=== PATIENT | female | born 1960 | race Caucasian/White ===

== ENCOUNTER 2020-12-19 06:16 | Day surgery (SDC) | payer OTHER, SELFPAY ==
--- NOTE | 2020-12-18 12:21 | P.CONAN_ITS ---
Documented by User: Kiley Bang NP 12/18/20 12:21 HPI - Anesthesia Eval Consult details Narrative: 60yo F for Colonoscopy PMFSH Past Medical History Medical History Anxiety Depression GERD (gastroesophageal reflux disease) Hiatal hernia Hx of migraines IBS (irritable bowel syndrome) FELICIA on CPAP Surgical History Surgical History History of esophagogastroduodenoscopy (EGD) Hx of appendectomy Hx of colonoscopy Social History Social History Patient Tobacco Use Status: Never used Tobacco Use of substances other than those prescribed or required for medical reasons: No Are you DNR?: No Advance Directives: No Advance Directives Information Provided: Yes Meds Allergies Allergy/AdvReac Type Severity Reaction Status Date / Time Penicillins [PENICILLINS] Allergy Severe RASH Verified 12/19/20 06:30 Home Medications Medication Instructions Recorded Confirmed Last Taken Type L.acidophilus,gasseri,rhamnosus-B.bifidum,long 1 cap PO QPM 12/12/20 12/12/20 Unknown History 3 billion cell capsule (Digestive Probiotic) cetirizine 10 mg tablet (Zyrtec) 10 mg PO DAILY 12/12/20 12/12/20 Unknown History cholecalciferol (vitamin D3) 25 25 mcg PO DAILY 12/12/20 12/12/20 Unknown History mcg (1,000 unit) capsule (Vitamin D3) venlafaxine 75 mg tablet 75 mg PO DAILY 12/12/20 12/12/20 Unknown History lisinopril 5 mg tablet 1 tab PO DAILY 12/19/20 12/19/20 12/19/20 05:30 History Exam Exam Date and Time: December 18, 2020 122 Assessment and Plan Assessment Anesthesia Assessment: Chart Reviewed Documented by User: Ana Madrigal MD 12/19/20 07:34 [facility] Active Problems Active Problems: Hypertension No longer using CPAP Machine Initial T 99, HR 120. Patient denies any recent illness or fever. Repeat T 98.6. HR 104 Past Medical History Medical History Anxiety Depression GERD (gastroesophageal reflux disease) Hiatal hernia Hx of migraines IBS (irritable bowel syndrome) FELICIA on CPAP Family History Family history of problems with anesthesia: No Surgical History Surgical History History of esophagogastroduodenoscopy (EGD) Hx of appendectomy Hx of colonoscopy History of Problems with Anesthesia: No Social History Social History Patient Tobacco Use Status: Never used Tobacco Use of substances other than those prescribed or required for medical reasons: No Are you DNR?: No Advance Directives: No Advance Directives Information Provided: Yes Meds Allergies Allergy/AdvReac Type Severity Reaction Status Date / Time Penicillins [PENICILLINS] Allergy Severe RASH Verified 12/19/20 06:30 Home Medications Medication Instructions Recorded Confirmed Last Taken Type L.acidophilus,gasseri,rhamnosus-B.bifidum,long 1 cap PO QPM 12/12/20 12/12/20 Unknown History 3 billion cell capsule (Digestive Probiotic) cetirizine 10 mg tablet (Zyrtec) 10 mg PO DAILY 12/12/20 12/12/20 Unknown History cholecalciferol (vitamin D3) 25 25 mcg PO DAILY 12/12/20 12/12/20 Unknown History mcg (1,000 unit) capsule (Vitamin D3) venlafaxine 75 mg tablet 75 mg PO DAILY 12/12/20 12/12/20 Unknown History lisinopril 5 mg tablet 1 tab PO DAILY 12/19/20 12/19/20 12/19/20 05:30 History Exam Height,Weight and Vital Signs: Height 5 ft 4 in Weight 76.204 kg Vital Signs Temp Pulse Resp BP Pulse Ox 12/19/20 06:41 99.0 F 120 H 20 144/94 H 97 Airway Mallampati Class: II TM Dist: >3cm Neck ROM: Full Loose/Missing/Broken Teeth: No Heart: RRR Lungs: CTAB Assessment and Plan Assessment Anesthesia Assessment: Anesthesia Plan Discussed Final Anesthetic Review Family History of Problems with Anesthesia: No History of Problems with Anesthesia: No NPO: Yes ASA Class: III Final Preanesthetic Review: No Changes in Pt Med Stat, Meds/Allgs Chart Reviewed, Consent Obtained/Reviewed and Anes Risks/Benef Reviewed Patient Risk: Intermediate Procedure Risk: Low Assessment/Block/Sedation in SS: Assess/Block/Sedation-SS Anesthetic Plan Anesthetic Plan: MAC: Disposition: Standard PACU
[2020-12-19 06:41] VITALS: BP 144/94; PULSE 120; RESP 20; TEMP 37.2; O2SAT 97; BMI 28.8
[2020-12-19] MEDS: Lactated Ringers 1,000 ML 100 ML IVCONT (06:59)
[2020-12-19 08:26] VITALS: BP 108/64; PULSE 102; RESP 16; TEMP 36.2; O2SAT 98
--- NOTE | 2020-12-19 08:27 | P.BOP_ITS ---
Brief Operative Note Date of Service: 12/19/20 Pre-op diagnosis: Screening Post-op diagnosis: other (Colon polyp) Procedure: Colonoscopy to the cecum and TI with biopsy and removal of polyp Surgeon: Ayo Pride Anesthesia: MAC Was an Wireworker Supervisor used for this Procedure?: No Estimated blood loss (mL): 3.0 Pathology: other (A. Transverse colon polyp) Condition: stable Disposition: PACU
[2020-12-19 08:41] VITALS: BP 110/69; PULSE 92; RESP 16; TEMP 36.2; O2SAT 99
--- NOTE | 2020-12-19 11:33 | OP_ITS ---
SURGEON: Ayo Pride MD INDICATIONS: The patient presents for evaluation of colorectal cancer screening, personal history of tubular adenoma of the colon, and family history of colon cancer. Full consent has been obtained from her for this, including risks of bleeding and perforation. PREOPERATIVE DIAGNOSIS: POSTOPERATIVE DIAGNOSIS: PROCEDURE PERFORMED: Colonoscopy to the cecum and terminal ileum with biopsy and removal of polyp. ESTIMATED BLOOD LOSS: COMPLICATIONS: ANESTHESIA: Monitored anesthesia care. ASSISTANTS: SPECIMENS: PREOPERATIVE DIAGNOSES: Colorectal cancer screening, personal history of tubular adenoma of the colon, and family history of colon cancer. POSTOPERATIVE DIAGNOSES: Colorectal cancer screening, personal history of tubular adenoma of the colon, and family history of colon cancer, small colon polyp, diverticulosis, and small internal hemorrhoids. DESCRIPTION OF PROCEDURE: The patient was placed in the left lateral decubitus position. The digital rectal exam revealed no abnormalities. The Olympus video pediatric colonoscope was entered into the rectum and advanced easily to the cecum. Once in the cecum, I did identify normal-appearing cecal pouch with appendiceal orifice and a normal-appearing ileocecal valve. The terminal ileum was cannulated and appeared normal. The scope was withdrawn back in the colon. The entire cecum and ileocecal valve appeared normal. The scope was slowly withdrawn assessing all mucosal surfaces carefully. Preparation was excellent. In the transverse colon, was a flat approximately 4 mm polyp, which was biopsied and completely removed with cold biopsy forceps. I did not visualize any other polyps, colitis, nor angiodysplasia. There was a mild amount of sigmoid diverticulosis. In the rectum, scope was retroflexed visualizing small internal hemorrhoids, but no other pathology. The rectal mucosa appeared normal. The scope was straightened out and withdrawn from the patient. She tolerated the procedure well and was returned to the recovery area in stable condition. IMPRESSION: 1. Small colon polyp, status post biopsy and removal. 2. Mild diverticulosis. 3. Small internal hemorrhoids. PLAN: The results of the biopsies will be checked. I would recommend a repeat colonoscopy in 5 years for further screening. She will otherwise see me on a p.r.n. basis. MD AYLIN Teixeira/RUBA / [id number]
== END 2020-12-19 10:25 | disposition home or self-care (01) ==
PROVIDERS: PCP Internal Medicine; Visit Provider Internal Medicine
PROC: 0DJD8ZZ Inspection of Lower Intestinal Tract, Via Natural or Artificial Opening Endoscopic (ICD-10-PCS; CPT 45378; principal; 2020-12-19 07:30)
DX: Z12.11 Encounter for screening for malignant neoplasm of colon (principal); Z86.010 Personal history of colon polyps; Z80.0 Family history of malignant neoplasm of digestive organs; D12.3 Benign neoplasm of transverse colon; K57.30 Diverticulosis of large intestine without perforation or abscess without bleeding; K64.8 Other hemorrhoids; K58.9 Irritable bowel syndrome, unspecified; K59.00 Constipation, unspecified; G47.33 Obstructive sleep apnea (adult) (pediatric); Z99.89 Dependence on other enabling machines and devices; Z79.899 Other long term (current) drug therapy
CPT/HCPCS: 45380; 88305

== ENCOUNTER 2021-01-15 14:41 | Outpatient (REF) | payer OTHER, SELFPAY | END 2021-01-15 14:42 | disposition home or self-care (01) | LOC: HO.LAB 14:41 | PROVIDERS: PCP Internal Medicine; Visit Provider Internal Medicine | DX: Z20.822 Contact with and (suspected) exposure to COVID-19 (principal) | CPT/HCPCS: C9803; U0003; U0005 ==